=== PATIENT | male | born 1995 | race Caucasian/White ===

== ENCOUNTER 2018-05-01 13:22 | Emergency (ER) | payer OTHER, SELFPAY ==
--- NOTE | 2018-05-01 15:28 | ER ---
Nurse's Notes [facility] Name: Brody Hoffmann Age: 22 yrs Sex: Male : 1995 Arrival Date: 05/01/2018 Time: 13:31 Bed 11 Private MD: None, None Diagnosis: Allergic rhinitis, unspecified Presentation: 05/01 13:57 Presenting complaint: Patient states: cough, nasal congestion, and sore throat since aa5 yesterday. Transition of care: patient was not received from another setting of care. Onset of symptoms was April 2018. Risk Assessment: Do you want to hurt yourself or someone else? Patient reports no desire to harm self or others. Initial Sepsis Screen: Does the patient meet any 2 criteria? No. Patient's initial sepsis screen is negative. Does the patient have a suspected source of infection? No. Patient's initial sepsis screen is negative. Care prior to arrival: None. 13:57 Method Of Arrival: Ambulatory aa5 13:57 Acuity: ROMINA 4 aa5 Historical: - Allergies: 13:58 Strattera; aa5 - PMHx: 13:58 None; aa5 - PSHx: 13:58 None; aa5 - Immunization history:: Flu vaccine is up to date. - Social history:: Smoking status: Patient uses tobacco products, denies chronic smoking, but will smoke occasionally. - Ebola Screening: : No symptoms or risks identified at this time. Screenin:45 Abuse screen: Denies threats or abuse. Nutritional screening: No deficits noted. aa5 Tuberculosis screening: No symptoms or risk factors identified. Fall Risk None identified. Assessment: 14:45 General: Appears comfortable, Behavior is calm, cooperative. Pain: Denies pain. Neuro: aa5 Level of Consciousness is awake, alert, obeys commands, Oriented to person, place, time, situation. Cardiovascular: Heart tones S1 S2 present Rhythm is regular. Respiratory: Reports cough Airway is patent Respiratory effort is even, unlabored, Respiratory pattern is regular, symmetrical, Breath sounds are clear bilaterally. GI: No signs and/or symptoms were reported involving the gastrointestinal system. : No signs and/or symptoms were reported regarding the genitourinary system. EENT: Throat is reddened Reports nasal congestion sore throat . Derm: Skin is pink, warm \T\ dry. Musculoskeletal: Range of motion: intact in all extremities. Vital Signs: 13:58 BP 109 / 59; Pulse 79; Resp 16 S; Temp 98.2(TE); Pulse Ox 97% on R/A; Weight 92.99 kg aa5 (R); Height 6 ft. 1 in. (185.42 cm) (R); Pain 0/10; 13:58 Body Mass Index 27.05 (92.99 kg, 185.42 cm) aa5 ED Course: 13:31 Patient arrived in ED. mr 13:31 None, None is Private Physician. mr 13:57 Triage completed. aa5 13:57 Arm band placed on. aa5 13:57 Patient has correct armband on for positive identification. aa5 14:05 Anne Horta FNP-C is [facility]. kb 14:05 Robert Kay MD is Attending Physician. kb 14:29 Merissa Eaton, RN is Primary Nurse. aa5 14:45 Flu and/or RSV swab sent to lab. Strep swab sent to lab. aa5 15:58 No provider procedures requiring assistance completed. Patient did not have IV access aj during this emergency room visit. Administered Medications: No medications were administered Outcome: 15:27 Discharge ordered by MD. kb 15:58 Discharged to home ambulatory. aj 15:58 Condition: good 15:58 Discharge instructions given to patient, Instructed on discharge instructions, follow up and referral plans. medication usage, Demonstrated understanding of instructions, follow-up care, medications. 15:59 Patient left the ED. aj Signatures: Anne Horta FNP-C FNP-Arianna Allison RN RN aj Rivera, Maria Merissa Eaton, RN RN aa
--- NOTE | 2018-05-01 15:28 | EDPHYS ---
Physician Documentation [facility] Name: Brody Hoffmann Age: 22 yrs Sex: Male : 1995 Arrival Date: 05/01/2018 Time: 13:31 Bed 11 Private MD: None, None ED Physician Robert Kay HPI: 05/01 15:51 This 22 yrs old Male presents to ER via Ambulatory with complaints of Flu kb Symptoms. 15:51 The patient or guardian reports cough, that is intermittent, described as mild, with no kb sputum. Onset: The symptoms/episode began/occurred yesterday. Severity of symptoms: At their worst the symptoms were moderate, in the emergency department the symptoms are unchanged. Modifying factors: The symptoms are alleviated by nothing, the symptoms are aggravated by nothing. Associated signs and symptoms: Pertinent positives: rhinorrhea, sore throat, Pertinent negatives: chest pain, diarrhea, ear ache, fever, nausea, vomiting. The patient has not experienced similar symptoms in the past. The patient has not recently seen a physician. Historical: - Allergies: 13:58 Strattera; aa5 - PMHx: 13:58 None; aa5 - PSHx: 13:58 None; aa5 - Immunization history:: Flu vaccine is up to date. - Social history:: Smoking status: Patient uses tobacco products, denies chronic smoking, but will smoke occasionally. - Ebola Screening: : No symptoms or risks identified at this time. ROS: 15:51 Constitutional: Negative for fever, chills, and weight loss, Cardiovascular: Negative kb for chest pain, palpitations, and edema, Abdomen/GI: Negative for abdominal pain, nausea, vomiting, diarrhea, and constipation, Back: Negative for injury and pain, MS/Extremity: Negative for injury and deformity, Skin: Negative for injury, rash, and discoloration, Neuro: Negative for headache, weakness, numbness, tingling, and seizure. 15:51 ENT: Positive for rhinorrhea, sinus congestion, sore throat. 15:51 Respiratory: Positive for cough, Negative for dyspnea on exertion, hemoptysis, orthopnea, pleurisy, shortness of breath, sputum production, wheezing. Exam: 15:51 Constitutional: This is a well developed, well nourished patient who is awake, alert, kb and in no acute distress. Head/Face: Normocephalic, atraumatic. ENT: Nares patent. No nasal discharge, no septal abnormalities noted. Tympanic membranes are normal and external auditory canals are clear. Oropharynx with no redness, swelling, or masses, exudates, or evidence of obstruction, uvula midline. Mucous membranes moist. Neck: Trachea midline, no thyromegaly or masses palpated, and no cervical lymphadenopathy. Supple, full range of motion without nuchal rigidity, or vertebral point tenderness. No Meningismus. Chest/axilla: Normal chest wall appearance and motion. Nontender with no deformity. No lesions are appreciated. Cardiovascular: Regular rate and rhythm with a normal S1 and S2. No gallops, murmurs, or rubs. Normal PMI, no JVD. No pulse deficits. Respiratory: Lungs have equal breath sounds bilaterally, clear to auscultation and percussion. No rales, rhonchi or wheezes noted. No increased work of breathing, no retractions or nasal flaring. Abdomen/GI: Soft, non-tender, with normal bowel sounds. No distension or tympany. No guarding or rebound. No evidence of tenderness throughout. Skin: Warm, dry with normal turgor. Normal color with no rashes, no lesions, and no evidence of cellulitis. MS/ Extremity: Pulses equal, no cyanosis. Neurovascular intact. Full, normal range of motion. Neuro: Awake and alert, GCS 15, oriented to person, place, time, and situation. Cranial nerves II-XII grossly intact. Motor strength 5/5 in all extremities. Sensory grossly intact. Cerebellar exam normal. Normal gait. Vital Signs: 13:58 BP 109 / 59; Pulse 79; Resp 16 S; Temp 98.2(TE); Pulse Ox 97% on R/A; Weight 92.99 kg aa5 (R); Height 6 ft. 1 in. (185.42 cm) (R); Pain 0/10; 13:58 Body Mass Index 27.05 (92.99 kg, 185.42 cm) aa5 MDM: 14:30 Patient medically screened. kb 15:51 Data reviewed: vital signs, nurses notes. Data interpreted: Pulse oximetry: on room air kb is 97 %. Interpretation: normal. Counseling: I had a detailed discussion with the patient and/or guardian regarding: the historical points, exam findings, and any diagnostic results supporting the discharge/admit diagnosis, lab results, the need for outpatient follow up, a family practitioner, to return to the emergency department if symptoms worsen or persist or if there are any questions or concerns that arise at home. 05/01 14:05 Order name: Strep; Complete Time: 14:59 kb 05/01 14:05 Order name: Flu; Complete Time: 15:15 kb 05/01 14:57 Order name: Throat Culture EDMS Administered Medications: No medications were administered Disposition: 16:11 Co-signature as Attending Physician, Robert Kay MD I agree with the assessment and aiden plan of care. Disposition: 05/01/18 15:27 Discharged to Home. Impression: Allergic rhinitis, unspecified. - Condition is Stable. - Discharge Instructions: Allergies, [id number]. - Medication Reconciliation Form, Thank You Letter, Antibiotic Education, Prescription Opioid Use, Work release form form. - Follow up: Emergency Department; When: As needed; Reason: Worsening of condition. Follow up: Private Physician; When: 2 - 3 days; Reason: Recheck today's complaints, Continuance of care, Re-evaluation by your physician. - Notes: Take an antihistamine with decongestant (zyrtec D, allergra D or claritin D) daily Use flonase daily Signatures: Dispatcher [employer] EDAnne Ga, [place] DEAN-Arianna Allison, RN Rboert Andrade MD MD cha Calderon, Audri, RN RN aa5 Corrections: (The following items were deleted from the chart) 15:59 15:27 05/01/2018 15:27 Discharged to Home. Impression: Allergic rhinitis, unspecified. aj Condition is Stable. Forms are Medication Reconciliation Form, Thank You Letter, Antibiotic Education, Prescription Opioid Use. Follow up: Emergency Department; When: As needed; Reason: Worsening of condition. Follow up: Private Physician; When: 2 - 3 days; Reason: Recheck today's complaints, Continuance of care, Re-evaluation by your physician. kb
== END 2018-05-01 15:59 | disposition home or self-care (01) ==
LOC: ER 13:22
DX: J30.9 Allergic rhinitis, unspecified (principal); F17.220 Nicotine dependence, chewing tobacco, uncomplicated; Z88.8 Allergy status to other drugs, medicaments and biological substances
CPT/HCPCS: 87070; 87081; 87804; 99283

== ENCOUNTER 2018-09-15 08:48 | Emergency (ER) | payer SELFPAY ==
[2018-09-15] MEDS ORDERED: IBUPROFEN 400 MG TAB ONE (09:20)
--- NOTE | 2018-09-15 10:32 | RAD REPORT ---
EXAM DESCRIPTION: RAD - Shoulder Left 2 View - 09/15/2018 9:24 am CLINICAL HISTORY: Left shoulder pain following trauma COMPARISON: None. TECHNIQUE: Internal and external rotation views of the left shoulder were obtained. FINDINGS: There is no fracture or dislocation. AC joint is normal in appearance. No acute or suspici ous findings. IMPRESSION: Negative two-view left shoulder examination.
--- NOTE | 2018-09-15 10:45 | ER ---
Nurse's Notes [facility] Name: Brody Hoffmann Age: 23 yrs Sex: Male : 1995 Arrival Date: 09/15/2018 Time: 08:51 Bed 14 Private MD: None, None Diagnosis: Pain in left shoulder;Sprain of other specified parts of left shoulder girdle Presentation: 09/15 09:02 Presenting complaint: Patient states: I caught my mom when she fell yesterday but my jl7 left arm didn't start hurting till about 0300 this morning. Shoulder pain, radiates to elbow and neck, sharp pains. Transition of care: patient was not received from another setting of care. Onset of symptoms was September 15, 2018 at 03:00. Risk Assessment: Do you want to hurt yourself or someone else? Patient reports no desire to harm self or others. Initial Sepsis Screen: Does the patient meet any 2 criteria? No. Patient's initial sepsis screen is negative. Does the patient have a suspected source of infection? No. Patient's initial sepsis screen is negative. Care prior to arrival: None. 09:02 Method Of Arrival: Ambulatory 7 09:02 Acuity: ROMINA 4 jl7 Triage Assessment: 09:04 General: Appears in no apparent distress. uncomfortable, Behavior is calm, cooperative, jl7 appropriate for age. Pain: Complains of pain in anterior aspect of left shoulder Pain radiates to left elbow and neck Pain currently is 8 out of 10 on a pain scale. Quality of pain is described as sharp, throbbing, Pain began 1 day ago. Is intermittent. Neuro: Level of Consciousness is awake, alert, obeys commands, Oriented to person, place, time, situation. Cardiovascular: Patient's skin is warm and dry. Respiratory: Airway is patent Respiratory effort is even, unlabored, Respiratory pattern is regular, symmetrical. Derm: Skin is pink, warm \T\ dry. Musculoskeletal: Range of motion: limited in left shoulder. Injury Description:. Historical: - Allergies: 09:04 Strattera; jl7 - Home Meds: 09:04 None [Active]; jl7 - PMHx: 09:04 ADD/ADHD; jl7 - PSHx: 09:04 None; jl7 - Immunization history:: Adult Immunizations up to date. - Social history:: Smoking status: Patient uses tobacco products, smokes one-half pack cigarettes per day. - Ebola Screening: : No symptoms or risks identified at this time. Screenin:10 Abuse screen: Denies threats or abuse. Denies injuries from another. Nutritional jl7 screening: No deficits noted. Tuberculosis screening: No symptoms or risk factors identified. Fall Risk None identified. Assessment: 09:10 General: See triage assessment. jl7 10:30 Reassessment: No changes from previously documented assessment. Patient and/or family jl7 updated on plan of care and expected duration. Pain level reassessed. Patient is alert, oriented x 3, equal unlabored respirations, skin warm/dry/pink. Patient states feeling better. 10:30 Pain: Pain currently is 3 out of 10 on a pain scale. jl7 Vital Signs: 09:04 BP 141 / 80; Pulse 77; Resp 18 S; Temp 98.2(O); Pulse Ox 100% on R/A; Weight 95.25 kg jl7 (R); Height 6 ft. 1 in. (185.42 cm) (R); Pain 8/10; 11:04 BP 135 / 80; Pulse 75; Resp 16; Pulse Ox 100% ; Pain 3/10; jl7 09:04 Body Mass Index 27.71 (95.25 kg, 185.42 cm) jl7 ED Course: 08:51 Patient arrived in ED. sb2 08:51 None, None is Private Physician. sb2 08:53 Stef Murdock MD is Attending Physician. kdr 08:55 Wan Garcia, AMANDA is Primary Nurse. jl7 09:03 Triage completed. jl7 09:04 Arm band placed on right wrist. jl7 09:10 Patient has correct armband on for positive identification. Bed in low position. Call jl7 light in reach. Side rails up X 1. 09:24 Shoulder Left (2 View) XRAY In Process Unspecified. EDMS 10:43 Zay Lyle MD is Referral Physician. kdr 11:05 No provider procedures requiring assistance completed. Patient did not have IV access jl7 during this emergency room visit. Administered Medications: 09:11 Drug: Ibuprofen 800 mg Route: PO; jl7 10:10 Follow up: Response: No adverse reaction; Pain is decreased jl7 Outcome: 10:44 Discharge ordered by . kdr 11:05 Discharged to home ambulatory. jl7 11:05 Condition: stable 11:05 Discharge instructions given to patient, Instructed on discharge instructions, follow up and referral plans. medication usage, Demonstrated understanding of instructions, follow-up care, medications, Prescriptions given X 1. 11:05 Patient left the ED. jl7 Signatures: Dispatcher [employer] EDMS Stef Murdock MD MD kdr Leal, Jahala, RN RN jl7 Giovana Santos sb2
--- NOTE | 2018-09-15 10:45 | EDPHYS ---
Physician Documentation [facility] Name: Brody Hoffmann Age: 23 yrs Sex: Male : 1995 Arrival Date: 09/15/2018 Time: 08:51 Bed 14 Private MD: None, None ED Physician Stef Murdock HPI: 09/15 09:07 This 23 yrs old Male presents to ER via Ambulatory with complaints of kdr Shoulder Injury. 09:07 The patient or guardian complains of decreased range of motion, an injury, pain, that kdr is acute, tenderness. left shoulder. Context: The problem was sustained at home, resulted from States that his mom was falling last night and that he tried to catch her - she weighs about 240#. He did not have immediate pain but hat within a few hours, when he tried to lay down, he started to have pain which has worsened since then. Today, he can not lift his arm over his head, The patient experiences decreased range of motion, when attempts to raise arm. Onset: The symptoms/episode began/occurred gradually, last night. Modifying factors: the symptoms are alleviated by remaining still, The symptoms are aggravated by lifting weight, movement, rotation of arm. Associated signs and symptoms: The patient has no apparent associated signs or symptoms. Severity of symptoms: At their worst the symptoms were moderate, in the emergency department the symptoms are unchanged. Treatment prior to arrival includes: no previous treatment. The patient has not experienced similar symptoms in the past. The patient has not recently seen a physician. Historical: - Allergies: 09:04 Strattera; jl7 - Home Meds: 09:04 None [Active]; jl7 - PMHx: 09:04 ADD/ADHD; jl7 - PSHx: 09:04 None; jl7 - Immunization history:: Adult Immunizations up to date. - Social history:: Smoking status: Patient uses tobacco products, smokes one-half pack cigarettes per day. - Ebola Screening: : No symptoms or risks identified at this time. ROS: 09:07 Constitutional: Negative for fever, chills, and weight loss, Eyes: Negative for injury, kdr pain, redness, and discharge, ENT: Negative for injury, pain, and discharge, Neck: Negative for injury, pain, and swelling, Cardiovascular: Negative for chest pain, palpitations, and edema, Respiratory: Negative for shortness of breath, cough, wheezing, and pleuritic chest pain, Abdomen/GI: Negative for abdominal pain, nausea, vomiting, diarrhea, and constipation, Back: Negative for injury and pain, : Negative for injury, bleeding, discharge, and swelling, Skin: Negative for injury, rash, and discoloration, Neuro: Negative for headache, weakness, numbness, tingling, and seizure activity. 09:07 MS/extremity: Positive for injury or acute deformity, decreased range of motion, pain, tenderness, Negative for bite, ecchymosis, erythema, laceration, paresthesias, puncture, rash, swelling. Exam: 09:07 Constitutional: This is a well developed, well nourished patient who is awake, alert, kdr and in no acute distress. Head/Face: Normocephalic, atraumatic. Eyes: Pupils equal round and reactive to light, extra-ocular motions intact. Lids and lashes normal. Conjunctiva and sclera are non-icteric and not injected. Cornea within normal limits. Periorbital areas with no swelling, redness, or edema. 09:07 Musculoskeletal/extremity: Extremities: grossly normal except: decreased ROM, pain, tenderness, ROM: limited active range of motion due to pain, limited passive range of motion due to pain, Circulation is intact in all extremities. Sensation intact. Joints: the left shoulder displays limited range of motion, pain at rest, painful range of motion, tenderness, Tender in AC area. Vital Signs: 09:04 BP 141 / 80; Pulse 77; Resp 18 S; Temp 98.2(O); Pulse Ox 100% on R/A; Weight 95.25 kg 7 (R); Height 6 ft. 1 in. (185.42 cm) (R); Pain 8/10; 11:04 BP 135 / 80; Pulse 75; Resp 16; Pulse Ox 100% ; Pain 3/10; jl7 09:04 Body Mass Index 27.71 (95.25 kg, 185.42 cm) 7 MDM: 10:44 Patient medically screened. kdr 10:46 Data reviewed: vital signs, nurses notes, radiologic studies. Counseling: I had a kdr detailed discussion with the patient and/or guardian regarding: the historical points, exam findings, and any diagnostic results supporting the discharge/admit diagnosis, radiology results, the need for outpatient follow up. 09/15 09:05 Order name: Shoulder Left (2 View) XRAY; Complete Time: 10:43 kdr 09/15 09:05 Order name: Sling; Complete Time: 09:14 kdr Administered Medications: 09:11 Drug: Ibuprofen 800 mg Route: PO; jl7 10:10 Follow up: Response: No adverse reaction; Pain is decreased jl7 Disposition: 09/15/18 10:44 Discharged to Home. Impression: Pain in left shoulder, Sprain of other specified parts of left shoulder girdle. - Condition is Stable. - Discharge Instructions: Musculoskeletal Pain, Shoulder Pain, [id number], Joint Pain, [id number]. - Prescriptions for Ibuprofen 800 mg Oral Tablet - take 1 tablet by ORAL route every 8 hours As needed take with food; 30 tablet. - Medication Reconciliation Form, Thank You Letter, Work release form form. - Follow up: Private Physician; When: 2 - 3 days; Reason: If symptoms return, Further diagnostic work-up, Recheck today's complaints, Continuance of care, Re-evaluation by your physician. Follow up: Zay Lyle MD; When: 2 - 3 days; Reason: Further diagnostic work-up, Recheck today's complaints, Continuance of care, Re-evaluation by your physician. - Problem is new. - Symptoms are unchanged. Signatures: Dispatcher [employer] EDMS Stef Murdock MD MD kdr Wan Garcia RN RN jl7 Corrections: (The following items were deleted from the chart) 11:05 10:44 09/15/2018 10:44 Discharged to Home. Impression: Pain in left shoulder; Sprain of jl7 other specified parts of left shoulder girdle. Condition is Stable. Forms are Medication Reconciliation Form, Thank You Letter, Antibiotic Education, Prescription Opioid Use. Follow up: Private Physician; When: 2 - 3 days; Reason: If symptoms return, Further diagnostic work-up, Recheck today's complaints, Continuance of care, Re-evaluation by your physician. Follow up: Dr. Zay Lyle; When: 2 - 3 days; Reason: Further diagnostic work-up, Recheck today's complaints, Continuance of care, Re-evaluation by your physician. Problem is new. Symptoms are unchanged. kdr
[2018-09-15] MEDS ORDERED: ACETAMINOPHEN 500 MG TAB ONE (13:13)
== END 2018-09-15 11:05 | disposition home or self-care (01) ==
LOC: ER 08:48
DX: S43.82XA Sprain of other specified parts of left shoulder girdle, initial encounter (principal); X58.XXXA Exposure to other specified factors, initial encounter; Y93.89 Activity, other specified; Y92.9 Unspecified place or not applicable; Z88.8 Allergy status to other drugs, medicaments and biological substances; F17.210 Nicotine dependence, cigarettes, uncomplicated
CPT/HCPCS: 99283

== ENCOUNTER 2019-08-01 02:06 | Emergency (ER) | payer SELFPAY ==
--- NOTE | 2019-08-01 02:29 | ER ---
Nurse's Notes [facility] Name: Brody Hoffmann Age: 24 yrs Sex: Male : 1995 Arrival Date: 08/01/2019 Time: 02:07 Bed 3 Private MD: Diagnosis: Dislocation of other parts of left shoulder girdle;Other dislocation of left shoulder joint Presentation: 08/01 02:10 Presenting complaint: Patient states: that he was attempting to pull dog who was laying fc on child off and pulled his left shoulder out of place. Severe pain noted and unable to move it. Transition of care: patient was not received from another setting of care. Onset of symptoms was August 01, 2019 at 02:00. Risk Assessment: Do you want to hurt yourself or someone else? Patient reports no desire to harm self or others. Initial Sepsis Screen: Does the patient meet any 2 criteria? HR > 90 bpm. Yes Does the patient have a suspected source of infection? No. Patient's initial sepsis screen is negative. Care prior to arrival: None. 02:10 Method Of Arrival: Ambulatory 02:10 Acuity: ROMINA 4 fc Triage Assessment: 02:10 General: Appears distressed, uncomfortable, slender, Behavior is cooperative, fc appropriate for age, anxious. Pain: Complains of pain in left shoulder Pain currently is 8 out of 10 on a pain scale. at worst was 10 out of 10 on a pain scale. Quality of pain is described as aching, sharp, shooting, throbbing, Pain began suddenly, Is continuous, Aggravated by increased activity, repositioning. EENT: No deficits noted. Neuro: Level of Consciousness is awake, alert, obeys commands, Oriented to person, place, time, situation, Appropriate for age. Cardiovascular: No deficits noted. Respiratory: No deficits noted. GI: No deficits noted. : No deficits noted. Derm: Skin is pink, warm \T\ dry. Musculoskeletal: Capillary refill < 3 seconds, Range of motion: limited in left shoulder Bony deformity noted of left shoulder Reports pain in left shoulder. Historical: - Allergies: 02:27 Strattera; fc - Home Meds: 02:27 None [Active]; fc - PMHx: 02:27 ADD/ADHD; fc - PSHx: 02:27 None; fc - Immunization history:: Last tetanus immunization: up to date Flu vaccine is not up to date. - Social history:: Smoking status: Patient uses tobacco products, smokes one pack cigarettes per day. Patient uses alcohol, occasionally. Patient/guardian denies using street drugs. - Family history:: not pertinent. - Ebola Screening: : Patient negative for fever greater than or equal to 101.5 degrees Fahrenheit, and additional compatible Ebola Virus Disease symptoms Patient denies exposure to infectious person Patient denies travel to an Ebola-affected area in the 21 days before illness onset. Screenin:10 Abuse screen: Denies threats or abuse. Nutritional screening: No deficits noted. fc Tuberculosis screening: No symptoms or risk factors identified. Fall Risk None identified. Assessment: 02:15 Reassessment: Dr Kay at bedside and left shoulder put back in place. fc 02:15 General: Appears uncomfortable, Behavior is appropriate for age. Pain: Complains of lp1 pain in left shoulder Pain currently is 10 out of 10 on a pain scale. Quality of pain is described as sharp. Neuro: No deficits noted. Cardiovascular: No deficits noted. Respiratory: No deficits noted. GI: No deficits noted. : No deficits noted. EENT: No deficits noted. Derm: Skin is pink, warm \T\ dry. Musculoskeletal: Bony deformity noted of left shoulder. 02:30 Reassessment: Patient complaint of pain to left shoulder Patient states feeling better. lp1 Vital Signs: 02:10 BP 139 / 85; Pulse 90; Resp 18; Pulse Ox 100% on R/A; Weight 92.99 kg (R); Height 6 ft. fc 1 in. (185.42 cm) (R); Pain 8/10; 02:23 Temp 98.2(O); ds4 02:45 BP 114 / 65; Pulse 78; Resp 16; Pulse Ox 99% on R/A; lp1 02:10 Body Mass Index 27.05 (92.99 kg, 185.42 cm) ED Course: 02:07 Patient arrived in ED. ds1 02:10 Arm band placed on Patient placed in an exam room, on a stretcher. fc 02:10 Patient has correct armband on for positive identification. Bed in low position. Call fc light in reach. Pulse ox on. NIBP on. 02:10 No provider procedures requiring assistance completed. fc 02:11 Robert Kay MD is Attending Physician. [facility] 02:26 Triage completed. 02:27 Zay Lyle MD is Referral Physician. aiden 02:40 Shoulder (1 View) XRAY In Process Unspecified. EDMS 02:45 IV discontinued. lp1 02:48 Chandni Spencer, RN is Primary Nurse. lp1 02:49 Sling applied to left arm. lp1 Administered Medications: 02:48 Not Given (Patient Refused): Lulu 10 mg-325 mg 1 tabs PO once; RASS on ADMIN: Combtv4, lp1 Very Agttd3, Agttd2, Rstlss1, AlertClm0, Drwsy-1, Lt Sdtn-2, Mod Sdtn-3, Dp Sdtn-4, UnArsble-5 02:48 Not Given (Patient Refused): Valium 5 mg PO once lp1 02:48 Not Given (Patient Refused): Zofran 4 mg PO once lp1 02:49 Drug: TORadol 60 mg Route: IM; Site: right deltoid; lp1 Outcome: 02:28 Discharge ordered by . [facility] 02:50 Discharged to home ambulatory, with significant other. lp1 02:50 Condition: good 02:50 Discharge instructions given to patient, Instructed on discharge instructions, follow up and referral plans. medication usage, Demonstrated understanding of instructions, follow-up care, medications, Prescriptions given X 3. 02:59 Patient left the ED. lp1 Signatures: Dispatcher [employer] EDRobert Curran MD MD cha Chretien, Felicia RN Fannie Reynaga ds1 Chandni Spencer RN RN lp Jose Cruz Shelby ds4
--- NOTE | 2019-08-01 02:30 | EDPHYS ---
Physician Documentation [facility] Name: Brody Hoffmann Age: 24 yrs Sex: Male : 1995 Arrival Date: 08/01/2019 Time: 02:07 Bed 3 Private MD: ED Physician Robert Kay HPI: 08/01 02:23 This 24 yrs old Male presents to ER via Unassigned with complaints of aiden Dislocated Shoulder. 02:23 The patient or guardian complains of decreased range of motion, pain, that is acute. aiden left shoulder. Context: The problem was sustained at home, resulted from a direct blow. Onset: The symptoms/episode began/occurred just prior to arrival. Modifying factors: the symptoms are alleviated by remaining still. Associated signs and symptoms: The patient has no apparent associated signs or symptoms. Severity of symptoms: At their worst the symptoms were moderate, in the emergency department the symptoms are unchanged. Treatment prior to arrival includes: no previous treatment. Historical: - Allergies: 02: Strattera; fc - Home Meds: : None [Active]; fc - PMHx: : ADD/ADHD; fc - PSHx: 02: None; fc - Immunization history:: Last tetanus immunization: up to date Flu vaccine is not up to date. - Social history:: Smoking status: Patient uses tobacco products, smokes one pack cigarettes per day. Patient uses alcohol, occasionally. Patient/guardian denies using street drugs. - Family history:: not pertinent. - Ebola Screening: : Patient negative for fever greater than or equal to 101.5 degrees Fahrenheit, and additional compatible Ebola Virus Disease symptoms Patient denies exposure to infectious person Patient denies travel to an Ebola-affected area in the 21 days before illness onset. ROS: 02:23 Constitutional: Negative for fever, chills, and weight loss, Eyes: Negative for injury, aiden pain, redness, and discharge, ENT: Negative for injury, pain, and discharge, Neck: Negative for injury, pain, and swelling, Cardiovascular: Negative for chest pain, palpitations, and edema, Respiratory: Negative for shortness of breath, cough, wheezing, and pleuritic chest pain, Abdomen/GI: Negative for abdominal pain, nausea, vomiting, diarrhea, and constipation, Back: Negative for injury and pain, : Negative for injury, bleeding, discharge, and swelling, Skin: Negative for injury, rash, and discoloration, Neuro: Negative for headache, weakness, numbness, tingling, and seizure, Psych: Negative for depression, anxiety, suicide ideation, homicidal ideation, and hallucinations, Allergy/Immunology: Negative for hives, rash, and allergies, Endocrine: Negative for neck swelling, polydipsia, polyuria, polyphagia, and marked weight changes, Hematologic/Lymphatic: Negative for swollen nodes, abnormal bleeding, and unusual bruising. 02:23 MS/extremity: Positive for decreased range of motion, pain, tenderness, of the anterior aspect of left shoulder and posterior aspect of left shoulder. Exam: 02:23 Constitutional: This is a well developed, well nourished patient who is awake, alert, aiden and in no acute distress. Head/Face: Normocephalic, atraumatic. Eyes: Pupils equal round and reactive to light, extra-ocular motions intact. Lids and lashes normal. Conjunctiva and sclera are non-icteric and not injected. Cornea within normal limits. Periorbital areas with no swelling, redness, or edema. ENT: Nares patent. No nasal discharge, no septal abnormalities noted. Tympanic membranes are normal and external auditory canals are clear. Oropharynx with no redness, swelling, or masses, exudates, or evidence of obstruction, uvula midline. Mucous membranes moist. Neck: Trachea midline, no thyromegaly or masses palpated, and no cervical lymphadenopathy. Supple, full range of motion without nuchal rigidity, or vertebral point tenderness. No Meningismus. Chest/axilla: Normal chest wall appearance and motion. Nontender with no deformity. No lesions are appreciated. Cardiovascular: Regular rate and rhythm with a normal S1 and S2. No gallops, murmurs, or rubs. Normal PMI, no JVD. No pulse deficits. Respiratory: Lungs have equal breath sounds bilaterally, clear to auscultation and percussion. No rales, rhonchi or wheezes noted. No increased work of breathing, no retractions or nasal flaring. Abdomen/GI: Soft, non-tender, with normal bowel sounds. No distension or tympany. No guarding or rebound. No evidence of tenderness throughout. Back: No spinal tenderness. No costovertebral tenderness. Full range of motion. Male : Normal genitalia with no discharge or lesions. Skin: Warm, dry with normal turgor. Normal color with no rashes, no lesions, and no evidence of cellulitis. Neuro: Awake and alert, GCS 15, oriented to person, place, time, and situation. Cranial nerves II-XII grossly intact. Motor strength 5/5 in all extremities. Sensory grossly intact. Cerebellar exam normal. Normal gait. Psych: Awake, alert, with orientation to person, place and time. Behavior, mood, and affect are within normal limits. 02:23 Musculoskeletal/extremity: Extremities: noted in the anterior aspect of left shoulder and posterior aspect of left shoulder: decreased ROM, pain, ROM: limited active range of motion due to pain, limited passive range of motion due to pain, Circulation is intact in all extremities. Sensation intact. Compartment Syndrome exam of affected extremity: is normal. DVT Exam: no swelling, negative Homans' sign noted on exam, no appreciated bluish discoloration, no erythema, no increased warmth, pain, tenderness. Vital Signs: 02:10 BP 139 / 85; Pulse 90; Resp 18; Pulse Ox 100% on R/A; Weight 92.99 kg (R); Height 6 ft. fc 1 in. (185.42 cm) (R); Pain 8/10; 02:23 Temp 98.2(O); ds4 02:45 BP 114 / 65; Pulse 78; Resp 16; Pulse Ox 99% on R/A; lp1 02:10 Body Mass Index 27.05 (92.99 kg, 185.42 cm) fc Procedures: 02:23 Splinting: using sling, applied by myself. post reduction film - reveals normal aiden alignment, Examined by me, post splint application: neurovascular intact, 2+ distal pulses palpable, brisk capillary refill noted, Patient tolerated well. MDM: 02:22 Patient medically screened. [facility] 02:23 Data reviewed: vital signs, nurses notes, radiologic studies, plain films. [facility] 08/01 02:31 Order name: Shoulder (1 View) XRAY lp1 08/01 02:23 Order name: Sling; Complete Time: 02:48 [facility] 08/01 02:23 Order name: Ice pack; Complete Time: 02:48 aiden Administered Medications: 02:48 Not Given (Patient Refused): Amberson 10 mg-325 mg 1 tabs PO once; RASS on ADMIN: Combtv4, lp1 Very Agttd3, Agttd2, Rstlss1, AlertClm0, Drwsy-1, Lt Sdtn-2, Mod Sdtn-3, Dp Sdtn-4, UnArsble-5 02:48 Not Given (Patient Refused): Valium 5 mg PO once lp1 02:48 Not Given (Patient Refused): Zofran 4 mg PO once lp1 02:49 Drug: TORadol 60 mg Route: IM; Site: right deltoid; lp1 Disposition: 08/01/19 02:28 Discharged to Home. Impression: Dislocation of other parts of left shoulder girdle, Other dislocation of left shoulder joint. - Condition is Stable. - Discharge Instructions: Shoulder Dislocation, Shoulder Dislocation, Pmid-vg-Eanp. - Prescriptions for Ibuprofen 600 mg Oral Tablet - take 1 tablet by ORAL route every 6 hours As needed take with food; 30 tablet. Tylenol- Codeine #3 300-30 mg Oral Tablet - take 2 tablet by ORAL route every 6 hours As needed; 30 tablet. Valium 2 mg Oral Tablet - take 1 tablet by ORAL route every 8 hours As needed; 20 tablet. - Medication Reconciliation Form, Thank You Letter, Antibiotic Education, Prescription Opioid Use form. - Follow up: Private Physician; When: 5 - 6 days; Reason: Recheck today's complaints, Continuance of care, Re-evaluation by your physician. Follow up: Zay Lyle MD; When: 2 - 3 days; Reason: Recheck today's complaints, Continuance of care, Re-evaluation by your physician. - Problem is new. - Symptoms have improved. Signatures: Dispatcher [employer] Robert Casiano MD MD cha Chretien, Felicia, RN RN Chandni Spencer RN RN lp1 Corrections: (The following items were deleted from the chart) 02:59 02:28 08/01/2019 02:28 Discharged to Home. Impression: Dislocation of other parts of lp1 left shoulder girdle; Other dislocation of left shoulder joint. Condition is Stable. Forms are Medication Reconciliation Form, Thank You Letter, Antibiotic Education, Prescription Opioid Use. Follow up: Private Physician; When: 5 - 6 days; Reason: Recheck today's complaints, Continuance of care, Re-evaluation by your physician. Follow up: Dr. Zay Lyle; When: 2 - 3 days; Reason: Recheck today's complaints, Continuance of care, Re-evaluation by your physician. Problem is new. Symptoms have improved. aiden
[2019-08-01] MEDS ORDERED: DIAZEPAM 5 MG TABLET ONE (02:36)
[2019-08-01] MEDS ORDERED: ONDANSETRON 4 MG (ODT) TAB ONE (02:36)
[2019-08-01] MEDS ORDERED: HYDROCODONE/APAP 10/325 TAB ONE (02:36)
[2019-08-01] MEDS ORDERED: KETOROLAC 30 MG/ML INJ ONE (02:36)
--- NOTE | 2019-08-01 09:49 | RAD REPORT ---
EXAM DESCRIPTION: RAD - Shoulder 1 View - 08/01/2019 2:39 am CLINICAL HISTORY: DEFORMITY Pain and swelling COMPARISON: No comparisons FINDINGS: No fracture is seen. No definitive finding to indicate dislocation. If pain persists or pr ogresses, CT or MR imaging would be advised.
== END 2019-08-01 02:59 | disposition home or self-care (01) ==
LOC: ER 02:06
PROC: 0RSKXZZ Reposition Left Shoulder Joint, External Approach (ICD-10-PCS; principal; 2019-08-01)
DX: S43.305A Dislocation of unspecified parts of left shoulder girdle, initial encounter (principal); X50.0XXA Overexertion from strenuous movement or load, initial encounter; Y93.89 Activity, other specified; Y92.9 Unspecified place or not applicable; F17.210 Nicotine dependence, cigarettes, uncomplicated; Z88.8 Allergy status to other drugs, medicaments and biological substances
CPT/HCPCS: 73020; 96372; 99284

== ENCOUNTER 2020-05-02 16:37 | Emergency (ER) | payer SELFPAY ==
--- NOTE | 2020-05-02 17:34 | RAD REPORT ---
EXAM DESCRIPTION: RAD - Chest Single View - 05/02/2020 5:17 pm CLINICAL HISTORY: CHEST PAIN, left side COMPARISON: None TECHNIQUE: AP portable chest image was obtained 05/02/2020 5:17 pm . FINDINGS: Lungs are clear. Heart and vasculature are normal. No measurable pleural effusion and no p neumothorax. No acute bony abnormality seen. No acute aortic findings suspected. IMPRESSION: No acute cardiopulmonary process.
[2020-05-02 17:37] LABS: Absolute Lymphocytes (CBC) 1.6 K/uL (0.7-4.9); Basophils % 0.6 % (0-1.3); Hematocrit 51.3 % (39.6-49.0); Lymphocytes % 24.9 % (15.3-44.8); MPV 10.3 fL (7.6-11.3); RBC Red Blood Cell Count 6.08 M/uL (4.33-5.43)
[2020-05-02 17:57] LABS: ALT/SGPT 47 U/L (12-78); Albumin 4.5 g/dL (3.4-5.0); Alkaline Phosphatase 104 U/L (45-117); BUN Blood Urea Nitrogen 17 mg/dL (7-18); Bicarbonate 29 mmol/L (21-32); Bilirubin Direct 0.1 mg/dL (0-0.2); Bilirubin Total 0.3 mg/dL (0.2-1.0); Glucose Level 84 mg/dL (74-106); NT PRO-BNP 11 pg/mL (<125); Protein, Total 8.6 g/dL (6.4-8.2); Sodium Level 138 mmol/L (136-145); Troponin (Emerg Dept Use Only) < 0.02 ng/mL (0.0-0.045)
[2020-05-02 18:00] LABS: Protime INR 0.94
[2020-05-02 18:03] LABS: AST/SGOT 21 U/L (15-37); Magnesium 2.1 mg/dL (1.8-2.4); Potassium 4.2 mmol/L (3.5-5.1)
--- NOTE | 2020-05-02 18:10 | EDPHYS ---
Physician Documentation [facility] Name: Brody Hoffmann Age: 24 yrs Sex: Male : 1995 Arrival Date: 05/02/2020 Time: 16:39 Bed 15 Private MD: ED Physician Stef Murdock HPI: 05/02 17:33 This 24 yrs old Male presents to ER via Ambulatory with complaints of Chest jmm Pain, Arm Pain. 17:33 The patient or guardian reports chest pain that is located primarily in the anterior [facility] chest wall, left. The pain radiates to the left arm. Associated signs and symptoms: Pertinent positives: shortness of breath. The chest pain is described as aching, sharp. Duration: The patient or guardian reports a single episode, that is still ongoing. This is a 24 year old male with a history of add/adhd that presents to the ED with complaints of left sided chest pain beginning Tuesday evening. Patient states he was lifting a recliner earlier that day. Pain has intensified since with radiation into his left arm into his 4th and 5th fingers. Patient states having a history of left sided anterior shoulder location as well. Denies drug use. . Historical: - Allergies: 16:45 Strattera; ll1 - PMHx: 16:45 ADD/ADHD; ll1 - PSHx: 16:45 None; ll1 - Immunization history:: Flu vaccine is up to date. - Social history:: Smoking status: Reported history of juuling and/or vaping. ROS: 17:33 Constitutional: Negative for fever, chills, and weight loss. jmm 17:33 Respiratory: Negative for shortness of breath, cough, wheezing, and pleuritic chest pain, Abdomen/GI: Negative for abdominal pain, nausea, vomiting, diarrhea, and constipation. 17:33 Cardiovascular: Positive for chest pain. 17:33 MS/extremity: Positive for pain. 17:33 All other systems are negative. Exam: 17:33 Constitutional: This is a well developed, well nourished patient who is awake, alert, jmm and in no acute distress. Head/Face: atraumatic. Eyes: EOMI, no conjunctival erythema appreciated ENT: Moist Mucus Membranes Neck: Trachea midline, Supple 17:33 Respiratory: Normal respirations, no respiratory distress appreciated Abdomen/GI: Non distended, soft Back: Normal ROM Skin: General appearance color normal 17:33 Chest/axilla: Inspection: normal, Palpation: tenderness, that is moderate, of the anterior aspect of left upper chest. 17:33 Cardiovascular: Rate: normal, Rhythm: regular. 17:33 Musculoskeletal/extremity: (+) tinnels sign at cubital tunnel, left, full autocad technician strength, full radial pulse, NVI. 17:36 ECG was reviewed by the Attending Physician. [facility] Vital Signs: 16:43 BP 124 / 81; Pulse 82; Resp 18; Temp 97.9; Pulse Ox 100% ; Weight 101.6 kg; Height 6 ll1 ft. 1 in. (185.42 cm); Pain 7/10; 16:43 Body Mass Index 29.55 (101.60 kg, 185.42 cm) ll1 MDM: 17:05 Patient medically screened. [facility] 17:33 Data reviewed: vital signs, nurses notes. [facility] 18:08 Data reviewed: lab test result(s), EKG, radiologic studies, plain films. ED course: [facility] Patient is alert and non toxic in appearance in the ED. Labs unremarkable. Symptoms most likely MS. Patient will be prescribed muscle relaxers. Patient is otherwise given strict return precautions. Patient understood and agrees with the plan of care. . 05/02 17:08 Order name: Basic Metabolic Panel; Complete Time: 18:10 [facility] 05/02 17:08 Order name: CBC with Diff; Complete Time: 17:59 [facility] 05/02 17:08 Order name: LFT's; Complete Time: 18:10 [facility] 05/02 17:08 Order name: Magnesium; Complete Time: 18:10 [facility] 05/02 17:08 Order name: NT PRO-BNP; Complete Time: 18:10 [facility] 05/02 17:08 Order name: PT-INR; Complete Time: 18:02 [facility] 05/02 17:08 Order name: Troponin (emerg Dept Use Only); Complete Time: 18:10 [facility] 05/02 17:08 Order name: XRAY Chest (1 view); Complete Time: 17:36 [facility] 05/02 17:08 Order name: EKG; Complete Time: 17:09 [facility] 05/02 17:08 Order name: Cardiac monitoring; Complete Time: 17:37 [facility] 05/02 17:08 Order name: EKG - Nurse/Tech; Complete Time: 17:36 [facility] 05/02 17:08 Order name: Labs collected and sent; Complete Time: 17:36 [facility] 05/02 17:08 Order name: D-Dimer; Complete Time: 18:02 [facility] 05/02 17:08 Order name: O2 Per Protocol; Complete Time: 17:36 [facility] 05/02 17:08 Order name: O2 Sat Monitoring; Complete Time: 17:37 jmm EC:36 Rate is 70 beats/min. Rhythm is regular. QRS [place] is Normal. MS interval is normal. QRS jmm interval is normal. QT interval is normal. No Q waves. T waves are Normal. No ST changes noted. Reviewed by me. Administered Medications: No medications were administered Disposition: 05/03 07:07 Co-signature as Attending Physician, Stef Murdock MD I agree with the assessment and kdr plan of care. Disposition: 05/02/20 18:09 Discharged to Home. Impression: Chest pain, unspecified, Pain in left arm. - Condition is Stable. - Discharge Instructions: Nonspecific Chest Pain, Musculoskeletal Pain. - Prescriptions for orphenadrine citrate 100 mg Oral Tablet Sustained Release - take 1 tablet by ORAL route 2 times per day As needed; 20 tablet. - Medication Reconciliation Form, Thank You Letter, Antibiotic Education, Prescription Opioid Use form. - Follow up: Private Physician; When: 2 - 3 days; Reason: Recheck today's complaints, Continuance of care, Re-evaluation by your physician. Signatures: Dispatcher [employer] Kaleigh Edmondson, Stef Martinez RN, MD MD kdr Mickail, Joel, PA PA [facility] Silva Bucio, RN RN ll1 Corrections: (The following items were deleted from the chart) 05/02 18:27 18:09 05/02/2020 18:09 Discharged to Home. Impression: Chest pain, unspecified; Pain in sv left arm. Condition is Stable. Forms are Medication Reconciliation Form, Thank You Letter, Antibiotic Education, Prescription Opioid Use. Follow up: Private Physician; When: 2 - 3 days; Reason: Recheck today's complaints, Continuance of care, Re-evaluation by your physician. [facility]
--- NOTE | 2020-05-02 18:10 | ER ---
Nurse's Notes [facility] Name: Brody Hoffmann Age: 24 yrs Sex: Male : 1995 Arrival Date: 05/02/2020 Time: 16:39 Bed 15 Private MD: Diagnosis: Chest pain, unspecified;Pain in left arm Presentation: 05/02 16:43 Chief complaint: Patient states: Left sided CP since Tuesday. Burning pain into neck and ll1 l arm. No SOB, no fever. Coronavirus screen: Client denies travel out of the [place] in the last 14 days. At this time, the client does not indicate any symptoms associated with coronavirus-19. The client reports previous COVID testing was negative. Ebola Screen: Patient denies travel to an Ebola-affected area in the 21 days before illness onset. Initial Sepsis Screen: Does the patient meet any 2 criteria? No. Patient's initial sepsis screen is negative. Risk Assessment: Do you want to hurt yourself or someone else? Patient reports no desire to harm self or others. Onset of symptoms was April 27, 2020. 16:43 Method Of Arrival: Ambulatory 1 16:43 Acuity: ROMINA 3 ll1 18:27 Initial Sepsis Screen: Does the patient have a suspected source of infection? No. sv Patient's initial sepsis screen is negative. Triage Assessment: 17:30 General: Appears in no apparent distress. Behavior is calm, cooperative. iw Historical: - Allergies: 16:45 Strattera; ll1 - PMHx: 16:45 ADD/ADHD; ll1 - PSHx: 16:45 None; ll1 - Immunization history:: Flu vaccine is up to date. - Social history:: Smoking status: Reported history of juuling and/or vaping. Screenin:27 Abuse screen: Denies threats or abuse. Denies injuries from another. Nutritional sv screening: No deficits noted. Tuberculosis screening: No symptoms or risk factors identified. Fall Risk None identified. Assessment: 17:30 General: Appears in no apparent distress. Behavior is calm, cooperative. Pain: iw Complains of pain in anterior aspect of left upper chest Pain does not radiate. Pain Pain began 2-3 days ago. Is. Neuro: Level of Consciousness is awake, alert, obeys commands, Oriented to person, place, time, situation, Moves all extremities. Full function. Cardiovascular: Reports chest pain, Capillary refill < 3 seconds in bilateral fingers Patient's skin is warm and dry. Respiratory: Respiratory effort is even, unlabored, Respiratory pattern is regular, symmetrical. Derm: Skin is intact, is healthy with good turgor. Musculoskeletal: Range of motion: intact in all extremities. Vital Signs: 16:43 BP 124 / 81; Pulse 82; Resp 18; Temp 97.9; Pulse Ox 100% ; Weight 101.6 kg; Height 6 ll1 ft. 1 in. (185.42 cm); Pain 7/10; 16:43 Body Mass Index 29.55 (101.60 kg, 185.42 cm) ll1 ED Course: 16:39 Patient arrived in ED. ds1 16:44 Triage completed. ll1 16:45 Eliceo Babcock PA is PHCP. [facility] 16:45 Stef Murdock MD is Attending Physician. [facility] 16:45 Arm band placed on Patient placed in an exam room, on a stretcher. ll1 17:00 Patient maintains SpO2 saturation greater than 95% on room air. iw 17:17 XRAY Chest (1 view) In Process Unspecified. EDMS 17:26 Brynn Hoffmann RN is Primary Nurse. iw 17:30 Pulse ox on. NIBP on. iw 17:37 Initial lab(s) drawn, by me, sent to lab. Missed attempt(s): 20 gauge in left mt antecubital area. Bleeding controlled, band aid applied, catheter tip intact. 18:26 No provider procedures requiring assistance completed. sv 18:26 Patient did not have IV access during this emergency room visit. iw 18:27 Patient has correct armband on for positive identification. sv Administered Medications: No medications were administered Outcome: 18:09 Discharge ordered by . [facility] 18:26 Discharged to home ambulatory. sv 18:26 Condition: stable 18:26 Discharge instructions given to patient, Instructed on discharge instructions, follow up and referral plans. no drinking with medication, no driving heavy equipment, medication usage, Demonstrated understanding of instructions, follow-up care, medications, Prescriptions given X 1. 18:27 Patient left the ED. sv Signatures: Dispatcher [employer] EDMS Kaleigh George RN RN sv Mickail, Joel, PA PA jmm Sanford, Demi ds1 Brynn Hoffmann, RN RN iw Jerry, Silva Moreno mt, RN RN ll1
[2020-05-02 18:32] VITALS: BP 124/81; TEMP 97.9; O2SAT 100
--- NOTE | 2020-05-03 12:25 | EKG ---
Test Date: 2020-05-02 Test Time: 17:35:17 Batch Blender: BRANNON MEASUREMENT RESULTS: Intervals: Rate: 70 LA: 140 QRSD: 100 QT: 378 QTc: 408 [place]: P: 52 LA: 140 QRS: 42 T: 32 INTERPRETIVE STATEMENTS: Normal sinus rhythm with sinus arrhythmia Normal ECG No previous ECG available for comparison Electronically Signed On 05-03-20 12:24:22 CDT by Leland Hook
== END 2020-05-02 18:27 | disposition home or self-care (01) ==
LOC: ER 16:37
DX: M79.602 Pain in left arm (principal); F90.9 Attention-deficit hyperactivity disorder, unspecified type; Z88.8 Allergy status to other drugs, medicaments and biological substances; Z87.891 Personal history of nicotine dependence
CPT/HCPCS: 36415; 71045; 80048; 80076; 83735; 83880; 84484; 85025; 85379; 85610; 93005; 99284

== ENCOUNTER 2021-03-13 16:30 | Emergency (ER) | payer SELFPAY ==
--- NOTE | 2021-03-13 17:58 | RAD REPORT ---
EXAM DESCRIPTION: RAD - Chest Pa And Lat (2 Views) - 03/13/2021 5:51 pm CLINICAL HISTORY: COUGH Chest pain. COMPARISON: <Comparisons> FINDINGS: The lungs are clear. The heart is normal in size. No displaced fractures. IMPRESSION: No acute or concerning finding suspected.
[2021-03-13] MEDS ORDERED: ACETAMINOPHEN 500 MG TAB ONE (20:13)
--- NOTE | 2021-03-13 20:13 | EDPHYS ---
Physician Documentation [facility] Name: Brody Hoffmann Age: 25 yrs Sex: Male : 1995 Arrival Date: 03/13/2021 Time: 16:33 Bed DX2 Private MD: ED Physician Stef Murdock HPI: 03/13 20:00 This 25 yrs old Male presents to ER via Ambulatory with complaints of cp Headache, Cough, Congestion, Dizziness. 20:00 The patient complains of pain to the top of head. The patient describes the headache as cp aching. 20:00 The patient or guardian reports cough, that is intermittent, chest congestion. cp 20:00 Onset: The symptoms/episode began/occurred 2 day(s) ago. Associated signs and symptoms: cp Pertinent positives: dizziness, fever, sore throat. Severity of symptoms: in the emergency department the pain is unchanged, despite home interventions. Historical: - Allergies: 17:40 Strattera; kg - Home Meds: 17:40 None [Active]; kg - PMHx: 17:40 ADD/ADHD; kg - PSHx: 17:40 None; kg - Immunization history:: Adult Immunizations up to date, Client reports having NOT received the Covid vaccine. - Social history:: Smoking status: Patient reports the use of cigarette tobacco products, smokes one-half pack cigarettes per day, Patient uses alcohol, occasionally. ROS: 20:05 Constitutional: Positive for body aches, chills, Negative for fever, poor PO intake. cp 20:05 Eyes: Negative for injury, pain, redness, and discharge. cp 20:05 ENT: Positive for sinus congestion, sore throat, Negative for drainage from ear(s), ear pain, difficulty swallowing, difficulty handling secretions. 20:05 Cardiovascular: Negative for chest pain, edema. 20:05 Respiratory: Positive for cough, Negative for wheezing. 20:05 Abdomen/GI: Negative for abdominal pain, nausea, vomiting, and diarrhea. 20:05 Back: Negative for radiated pain. 20:05 Skin: Negative for cellulitis, rash. 20:05 Neuro: Positive for dizziness, headache, Negative for altered mental status, syncope, weakness. 20:05 All other systems are negative. Exam: 20:09 Head/Face: Normocephalic, atraumatic. cp 20:09 Constitutional: The patient appears in no acute distress, alert, awake, non-toxic, well developed, well nourished. 20:09 Eyes: Periorbital structures: appear normal, Conjunctiva: normal, no exudate, no injection, Sclera: no appreciated abnormality, Lids and lashes: appear normal, bilaterally. 20:09 ENT: External ear(s): are unremarkable, Ear canal(s): are normal, clear, TM's: dullness, bilaterally, Nose: is normal, Mouth: Lips: moist, Oral mucosa: moist, Posterior pharynx: Airway: no evidence of obstruction, patent, Tonsils: no enlargement, no exudate, erythema, that is mild, exudate, is not appreciated. 20:09 Neck: ROM/movement: is normal, is supple, without pain, no range of motions limitations, no meningismus, no nuchal rigidity, Lymph nodes: no appreciated lymphadenopathy. 20:09 Chest/axilla: Inspection: normal, Palpation: is normal, no crepitus, no tenderness. 20:09 Cardiovascular: Rate: tachycardic, Rhythm: regular, Edema: is not appreciated, JVD: is not appreciated. 20:09 Respiratory: the patient does not display signs of respiratory distress, Respirations: normal, no use of accessory muscles, no retractions, labored breathing, is not present, Breath sounds: bronchial sounds, that are mild, are heard diffusely, decreased breath sounds, are not appreciated, stridor, is not appreciated, wheezing: is not appreciated. 20:09 Abdomen/GI: Exam negative for discomfort, distension, guarding, Inspection: abdomen appears normal. 20:09 Neuro: Orientation: to person, place \T\ time. Mentation: is normal, Motor: moves all fours, strength is normal, Gait: is steady, at a normal pace, without difficulty. Vital Signs: 17:37 BP 123 / 81; Pulse 102; Resp 20; Temp 101.6(O); Pulse Ox 100% on R/A; Weight 102.97 kg kg (R); Height 6 ft. 1 in. (185.42 cm) (R); Pain 5/10; 20:43 BP 104 / 65; Pulse 80; Resp 18 S; Temp 99(O); Pulse Ox 96% on R/A; bb 17:37 Body Mass Index 29.95 (102.97 kg, 185.42 cm) kg MDM: 18:30 Differential diagnosis: bronchitis, flu, URI, COVID-19. pneumonia meningitis, cp meningoencephalitis, migraine, sinusitis. 19:57 Patient medically screened. cp 20:11 Data reviewed: vital signs, nurses notes, lab test result(s), radiologic studies, plain cp films. Counseling: I had a detailed discussion with the patient and/or guardian regarding: the historical points, exam findings, and any diagnostic results supporting the discharge/admit diagnosis, lab results, radiology results, to return to the emergency department if symptoms worsen or persist or if there are any questions or concerns that arise at home. 03/13 17:40 Order name: Strep; Complete Time: 18:25 cp 03/13 17:40 Order name: Influenza Screen (a \T\ B); Complete Time: 19:36 cp 03/13 19:36 Interpretation: Reviewed. 03/13 17:40 Order name: XRAY Chest Pa And Lat (2 Views); Complete Time: 18:25 cp 03/13 18:25 Interpretation: Report reviewed. 03/13 18:05 Order name: Throat Culture EDWY 03/13 19:40 Order name: SARS-COV-2 RT PCR; Complete Time: 19:56 EDWY 03/13 19:56 Interpretation: Results reviewed. cp Administered Medications: 19:58 Drug: Tylenol 1000 mg Route: PO; bb 20:44 Follow up: Response: Temperature is decreased bb Disposition: 03/14 18:14 Co-signature as Attending Physician, Stef Murdock MD I agree with the assessment and kdr plan of care. Disposition Summary: 03/13/21 20:13 Discharge Ordered Location: Home cp Problem: new cp Symptoms: have improved cp Condition: Stable cp Diagnosis - SARS-associated coronavirus as the cause of diseases classified elsewhere cp - Headache cp Followup: cp - With: Private Physician - When: 2 - 3 days - Reason: Worsening of condition Discharge Instructions: - Discharge Summary Sheet cp - COVID-19 cp - Things to Know about the COVID-19 Pandemic - [facility] cp - 10 Things You Can Do to Manage Your COVID-19 Symptoms at Home - [facility] cp - COVID-19: Quarantine vs. Isolation - [facility] cp - Prevent the Spread of COVID-19 if You Are Sick - [facility] cp Forms: - Medication Reconciliation Form cp - Thank You Letter cp - Antibiotic Education cp - Prescription Opioid Use cp Prescriptions: - Ibuprofen 800 mg Oral Tablet - take 1 tablet by ORAL route every 8 hours As needed take with food; 30 tablet; cp Refills: 0, Product Selection Permitted - Tessalon Perles 100 mg Oral Capsule - take 2 capsule by ORAL route every 8 hours As needed; 30 capsule; Refills: 0, cp Product Selection Permitted Signatures: Dispatcher [employer] [facility] Stef Murdock MD MD kdr Lizz De La Cruz RN RN bb Robert Couch PA PA cp Ani Dueñas RN RN kg Corrections: (The following items were deleted from the chart) 03/13 18:45 17:41 CORONAVIRUS+ ordered. [facility]
--- NOTE | 2021-03-13 20:13 | ER ---
Nurse's Notes [facility] Name: Brody Hoffmann Age: 25 yrs Sex: Male : 1995 Arrival Date: 03/13/2021 Time: 16:33 Bed DX2 Private MD: Diagnosis: SARS-associated coronavirus as the cause of diseases classified elsewhere;Headache Presentation: 03/13 17:37 Chief complaint: Patient states: Cold chills, cough, runny nose, SOB, sore throat, kg dizziness x 2 days. Coronavirus screen: Client denies travel out of the [place] in the last 14 days. At this time, unable to obtain information related to travel outside the [place] Client presents with at least one sign or symptom that may indicate coronavirus-19. Standard/surgical mask placed on the client. Provider contacted for isolation considerations. Ebola Screen: Patient negative for fever greater than or equal to 101.5 degrees Fahrenheit, and additional compatible Ebola Virus Disease symptoms Patient denies exposure to infectious person. Patient denies travel to an Ebola-affected area in the 21 days before illness onset. Initial Sepsis Screen: Does the patient meet any 2 criteria? No. Patient's initial sepsis screen is negative. Does the patient have a suspected source of infection? No. Patient's initial sepsis screen is negative. Risk Assessment: Do you want to hurt yourself or someone else? Patient reports no desire to harm self or others. Onset of symptoms was March 10, 2021. 17:37 Method Of Arrival: Ambulatory kg 17:37 Acuity: ROIMNA 3 kg Triage Assessment: 17:40 Headache History: The patient has had previous headaches and this one is similar to kg previous episodes. General: Appears in no apparent distress. distressed. Pain: Pain currently is 4 out of 10 on a pain scale. at worst was 8 out of 10 on a pain scale. level that patient reports is acceptable is 3 out of 10 on a pain scale. Neuro: No deficits noted. Historical: - Allergies: 17:40 Strattera; kg - Home Meds: 17:40 None [Active]; kg - PMHx: 17:40 ADD/ADHD; kg - PSHx: 17:40 None; kg - Immunization history:: Adult Immunizations up to date, Client reports having NOT received the Covid vaccine. - Social history:: Smoking status: Patient reports the use of cigarette tobacco products, smokes one-half pack cigarettes per day, Patient uses alcohol, occasionally. Screenin:41 Abuse screen: Denies threats or abuse. Denies injuries from another. Nutritional kg screening: No deficits noted. Tuberculosis screening: No symptoms or risk factors identified. Fall Risk None identified. Assessment: 20:41 General: Appears in no apparent distress. Behavior is calm, cooperative. Pain: Denies bb pain. Neuro: Level of Consciousness is awake, alert, obeys commands, Oriented to person, place, time, situation. Cardiovascular: Capillary refill < 3 seconds Patient's skin is warm and dry. Respiratory: Respiratory effort is even, unlabored, Respiratory pattern is regular. GI: No signs and/or symptoms were reported involving the gastrointestinal system. Derm: Skin is pink, warm \T\ dry. Musculoskeletal: Circulation, motion, and sensation intact. 20:42 Reassessment: Patient is alert, oriented x 3, equal unlabored respirations, skin bb warm/dry/pink. pt verbalized understanding of and agrees to plan of care discharge instructions given pt ambulated with steady walk to exit accompanied by family. Vital Signs: 17:37 BP 123 / 81; Pulse 102; Resp 20; Temp 101.6(O); Pulse Ox 100% on R/A; Weight 102.97 kg kg (R); Height 6 ft. 1 in. (185.42 cm) (R); Pain 5/10; 20:43 BP 104 / 65; Pulse 80; Resp 18 S; Temp 99(O); Pulse Ox 96% on R/A; bb 17:37 Body Mass Index 29.95 (102.97 kg, 185.42 cm) kg ED Course: 16:33 Patient arrived in ED. mr 17:39 Robert Couch PA is PHCP. cp 17:39 Stef Murdock MD is Attending Physician. cp 17:40 Triage completed. kg 17:41 Patient has correct armband on for positive identification. kg 17:51 XRAY Chest Pa And Lat (2 Views) In Process Unspecified. EDMS 20:39 Lizz De La Cruz, RN is Primary Nurse. bb 20:41 No provider procedures requiring assistance completed. Patient did not have IV access bb during this emergency room visit. Administered Medications: 19:58 Drug: Tylenol 1000 mg Route: PO; bb 20:44 Follow up: Response: Temperature is decreased bb Outcome: 20:13 Discharge ordered by . cp 20:43 Discharged to home ambulatory, with family. bb 20:43 Condition: stable 20:43 Discharge instructions given to patient, Instructed on discharge instructions, follow up and referral plans. medication usage, Demonstrated understanding of instructions, follow-up care, medications, Prescriptions given X 1. 20:43 Patient left the ED. bb Signatures: Dispatcher [employer] Autumn Harmon Brenda, RN RN bb Robert Couch, CHARY PA Ani Conteh, RN RN kg
[2021-03-13 21:07] VITALS: BP 123/81; TEMP 101.6; O2SAT 100
== END 2021-03-13 20:43 | disposition home or self-care (01) ==
LOC: ER 16:30
DX: U07.1 COVID-19 (principal); F17.210 Nicotine dependence, cigarettes, uncomplicated; Z88.8 Allergy status to other drugs, medicaments and biological substances
CPT/HCPCS: 71046; 87070; 87081; 87804; 99283; U0003